=== PATIENT | female | born 1965 | race American Indian/Alaskan Native ===

== ENCOUNTER 2017-06-12 15:57 | Emergency (ER) | payer MEDICAID ==
[2017-06-12 16:06] VITALS: BMI 35.7
[2017-06-12 16:26] VITALS: RESP 18; TEMP 98.6; O2SAT 99
--- NOTE | 2017-06-12 16:29 | ED PDOC ---
Arrival/HPI - General Chief Complaint: Shortness Of Breath Time Seen by Provider: 06/12/17 15:58 Historian: Patient - History of Present Illness Narrative History of Present Illness (Text): 06/12/17 15:58 A 52 year old female, current smoker, whose medical history includes hypertension and sleep apnea, presents to the emergency department for shortness of breath associated with a pain in her left side. The patient states she began to feel cold-like symptoms, but especially a cough about 5 days ago. She reports that within the last 3 days she's become easily winded she feels a greater sensation of shortness of breath. Aside to her shortness of breath and cough, she notes having a "gas like pain" on her left side, which worsens when she lays down or takes a deep breath. Denies association with meals. No diarrhea. No urinary symptoms. Denies recent cardiac evaluation. Denies smoking. Denies prolonged travel or immobilization. PMD: Dr. Main Iraheta Time/Duration: < week (5 days) Symptom Onset: Gradual Symptom Course: Unchanged Activities at Onset: Light Context: Home Past Medical History - Provider Review Nursing Documentation Reviewed: Yes - Infectious Disease Hx of Infectious Diseases: None - Reproductive Menopause: Yes - Cardiac Hx Hypertension: Yes - Pulmonary Hx Sleep Apnea: Yes - Psychiatric Hx Substance Use: No - Anesthesia Hx Anesthesia: No Family/Social History - Physician Review Nursing Documentation Reviewed: Yes Family/Social History: Unknown Family HX Smoking Status: Current Some Days Smoker Hx Alcohol Use: No Hx Substance Use: No Allergies/Home Meds Allergies/Adverse Reactions: Allergies ragweed pollen Allergy (Verified 06/12/17 16:07) CONGESTION Home Medications: Home Meds Medication Instructions Recorded Confirmed Losartan [Cozaar] 100 mg PO DAILY 06/12/17 06/14/17 Triamterene/Hydrochlorothiazid 1 cap PO DAILY 06/12/17 06/14/17 [Triamterene-Hydrochlorothiazide 25 mg-37.5 mg] Review of Systems - Review of Systems Constitutional: absent: Fevers Eyes: absent: Vision Changes ENT: absent: Hearing Changes Respiratory: SOB, Cough, Sputum Cardiovascular: absent: Chest Pain Gastrointestinal: Abdominal Pain (Upper left side- "gas-like)). absent: Diarrhea, Nausea, Vomiting, Appetite Changes, Hematochezia Genitourinary Female: absent: Hematuria, Urine Output Changes Musculoskeletal: absent: Back Pain, Neck Pain Skin: Normal. absent: Rash Neurological: absent: Headache Endocrine: absent: Diaphoresis Hemo/Lymphatic: absent: Easy Bleeding Psychiatric: absent: Depression Physical Exam - Physical Exam Narrative Physical Exam (Text): 06/12/17 16:00 Head: Atraumatic. Normocephalic. Eyes: PERRL. EOMI. Conjunctivae are not pale. ENT: Mucous membranes are moist and intact. Oropharynx is clear and symmetric. Neck: Supple. Full ROM. No JVD. No lymphadenopathy. Cardiovascular: Regular rate. Regular rhythm. No murmurs, rubs, or gallops. Distal pulses are 2+ and symmetric. Pulmonary/Chest: No evidence of respiratory distress. Clear to auscultation bilaterally. No wheezing, rales or rhonchi. Palpable left sided back/rib discomfort, no edema. Abdominal: Soft and non-distended. There is no tenderness. No rebound, guarding, or rigidity. No organomegaly. Good bowel sounds. No luq pain. Back: Tender to palpation on the left side. Extremities: No edema. No cyanosis. No clubbing. Full range of motion in all extremities. No calf tenderness. Skin: No vesicular rash. Skin is warm and dry. No petechiae. No purpura. Neurological: Alert, awake, and oriented to person, place, time, and situation. Normal speech. Motor and sensory function intact. Psychiatric: Good eye contact. Normal interaction, affect, and behavior. Vital Signs Reviewed: Yes Vital Signs Temp Pulse Resp BP Pulse Ox 06/12/17 18:00 75 18 139/75 99 06/12/17 16:26 98.6 F 72 18 151/94 H 99 06/12/17 16:00 18 99 Temperature: Afebrile Blood Pressure: Hypertensive Pulse: Regular Respiratory Rate: Normal Appearance: Positive for: Non-Toxic, Uncomfortable Pain Distress: Mild Mental Status: Positive for: Alert and Oriented X 3 Medical Decision Making ED Course and Treatment: 06/12/17 16:05 Impression: A 52 year old female with shortness of breath, cough, and gas like pain. Differential Diagnosis included but are not limited to: Pneumonia vs. CAD vs. Muscle strain vs. Pulmonary Embolism Plan: -- EKG -- Chest X-Ray -- Labs -- Urinalysis -- Reassess and disposition Progress Notes: Patient has a palpable component to left sided pain, appears more left flank/ ribs but denies urinary symptoms or trauma. No rash noted. No abdominal pain noted. No calf pain. No hypoxia. Ddimer unremarkable. Chest X-Ray Concert Pianist : Tha Segal MD Report Date : 06/12/2017 17:37:27 HISTORY:chest pain COMPARISON:No prior. FINDINGS: LUNGS:No active pulmonary disease. PLEURA:No significant pleural effusion identified, no pneumothorax apparent. CARDIOVASCULAR:Normal. OSSEOUS STRUCTURES:No significant abnormalities. VISUALIZED UPPER ABDOMEN:Normal. OTHER FINDINGS:None. IMPRESSION:No active disease. Pain improved after Toradol. I discussed cxr and lab findings and reviewed limitations of studies, have advised admission to the hospital for further monitoring and cardiac evaluation on inpatient basis. Patient states she does not want to be admitted stating that she is very busy and feels better. I have discussed with her limitations of labs and current imaging studies in completely diagnosis cardiac or pulmonary disease. She is able to repeat back risks and repeat back recommended treatment plan. She will be discharged against advice. 06/12/17 19:12 Leaving Against Medical Advice (AMA): This patient is choosing to leave against medical advice. I have personally explained to the patient that choosing to do so may result in permanent bodily harm or . I have discussed at great length that without further evaluation and monitoring there may be unforeseen circumstances and/or deterioration causing permanent bodily harm or as a result of their choice. The patient is alert, oriented, and shows the mental capacity to make clear decisions regarding the patients health care at this time. The patient continues to wish to leave against medical advice. In light of the patients decision to leave AMA, follow-up has been arranged and the patient is aware of the importance of following up as instructed. The patient has been advised that they should return to the ED immediately if they change their mind at any time, or if their condition begins to change or worsen in any way. - Lab Interpretations Lab Results: 06/12/17 16:20 06/12/17 16:40 Lab Results 06/12/17 16:40: Sodium 141, Potassium 4.1, Chloride 101, Carbon Dioxide 30, Anion Gap 14, BUN 16, Creatinine 0.9, Est GFR ( Amer) > 60, Est GFR (Non- Af Amer) > 60, Random Glucose 84, Calcium 9.6, Total Bilirubin 0.5, AST 26, ALT 37, Alkaline Phosphatase 130, Lactate Dehydrogenase 502, Total Creatine Kinase 103, Troponin I < 0.01, Total Protein 8.1, Albumin 4.6, Globulin 3.5, Albumin/ Globulin Ratio 1.3 06/12/17 16:20: PT 10.3, INR 0.95, APTT 28.0, D-Dimer, Quantitative 0.33 06/12/17 16:20: WBC 9.9, RBC 4.83, Hgb 13.5, Hct 41.0, MCV 84.9, MCH 28.0, MCHC 32.9, RDW 13.3, Plt Count 272, MPV 11.1 H, Gran % 60.9, Lymph % (Auto) 26.8, [place] % (Auto) 7.9 H, Eos % (Auto) 3.9, Baso % (Auto) 0.5, Gran # 6.03, Lymph # 2.7, [place] # 0.8 H, Eos # 0.4, Baso # 0.05 06/12/17 16:10: Urine Color Yellow, Urine Appearance Clear, Urine pH 8.0, Ur Specific [place] 1.015, Urine Protein Negative, Urine Glucose (UA) Negative, Urine Ketones Negative, Urine Blood Negative, Urine Nitrate Negative, Urine Bilirubin Negative, Urine Urobilinogen 1.0 H, Ur Leukocyte Esterase Negative - RAD Interpretation Radiology Orders: 06/12/17 16:13 CHEST PORTABLE [RAD] Stat - EKG Interpretation EKG Interpretation (Text): 06/12/17 22:46 EKG at 16:14 normal sinus rhythm raet of 78 with possible left atrial enlargement Interpreted by ED Physician: Yes Type: 12 lead EKG - Medication Orders Current Medication Orders: Discontinued Medications Ketorolac Tromethamine (Toradol) 30 mg IVP ONCE ONE Stop: 06/12/17 16:41 Last Admin: 06/12/17 16:48 Dose: 30 mg - PA / NAVAL DESIGNER / Resident Statement MD/DO has reviewed & agrees with the documentation as recorded. - Scribe Statement The provider has reviewed the documentation as recorded by the [facility] Provider Scribe Attestation: All medical record entries made by the Scribe were at my direction and personally dictated by me. I have reviewed the chart and agree that the record accurately reflects my personal performance of the history, physical exam, medical decision making, and the department course for this patient. I have also personally directed, reviewed, and agree with the discharge instructions and disposition. Disposition/Present on Arrival - Present on Arrival Any Indicators Present on Arrival: No History of DVT/PE: No History of Uncontrolled Diabetes: No Urinary Catheter: No History of Decub. Ulcer: No History Surgical Site Infection Following: None - Disposition Have Diagnosis and Disposition been Completed?: Yes Diagnosis: Flank pain, Chest pain, Dyspnea Disposition: AGAINST MEDICAL ADVICE Disposition Time: 18:00 Patient Plan: Discharge Condition: GOOD Discharge Instructions (ExitCare): Chest Pain (ED), Flank Pain (ED) Additional Instructions: I have discussed with you your lab tests, xrays, and also discussed limitations of these studies and xrays. We have discussed and recommended admission to the hospital for further monitoring and evaluation of your heart, lungs and pain. Risks of sudden , heart attack, disability, pain, persistent symptoms, have been reviewed. Follow-up immediately for any worsening or persistence of symptoms. Referrals: Tony Iraheta MD [Primary Care Provider] - Follow up with primary Forms: [employer] (Faroese)
[2017-06-12 16:35] LABS: BASO # 0.05 K/mm3 (0.0-2.0); BASO % 0.5 % (0.0-3.0); EOS # 0.4 (0.0-0.7); EOS % 3.9 % (1.5-5.0); GRAN # 6.03 (1.4-6.5); GRAN % 60.9 % (50.0-68.0); LYMPH # 2.7 (1.2-3.4); LYMPH % 26.8 % (22.0-35.0); MEAN CELL VOLUME 84.9 fl (80.0-105.0); MEAN CORPUSCULAR HGB CONC 32.9 g/dl (31.0-37.0); MEAN PLATELET VOLUME 11.1 fl (7.0-11.0); MONO # 0.8 (0.1-0.6); MONO % 7.9 % (1.0-6.0); RED CELL DISTRIBUTION WIDTH 13.3 % (11.5-14.5); WHITE BLOOD COUNT 9.9 10^3/ul (4.5-11.0)
[2017-06-12 16:41] LABS: URINE BILIRUBIN NEGATIVE (NEGATIVE); URINE BLOOD NEGATIVE (NEGATIVE); URINE GLUCOSE (UA) NEGATIVE (NEGATIVE); URINE KETONE NEGATIVE (NEGATIVE); URINE LEUKOCYTE ESTERASE NEGATIVE Leu/uL (NEGATIVE); URINE PROTEIN NEGATIVE mg/dL (<30 mg/dL)
[2017-06-12 16:43] LABS: URINE APPEARANCE CLEAR (CLEAR); URINE COLOR YELLOW (YELLOW)
[2017-06-12 16:51] LABS: INR 0.95 (0.93-1.08)
[2017-06-12 16:52] LABS: D DIMER 0.33 mg/L FEU (0-0.50)
[2017-06-12 17:06] LABS: ALB/GLOB RATIO 1.3 (1.1-1.8); ALKALINE PHOSPHATASE 130 U/L (38-133); ALT/SGPT 37 U/L (7-56); AST/SGOT 26 U/L (15-39); BILIRUBIN,TOTAL 0.5 mg/dL (0.2-1.3); BLOOD UREA NITROGEN 16 mg/dL (7-21); CALCIUM 9.6 mg/dL (8.4-10.5); CARBON DIOXIDE 30 mmol/L (21-33); CHLORIDE 101 mmol/L (98-107); GFR AFRICAN-AMERICAN > 60; GLUCOSE,RANDOM 84 mg/dL (70-110); POTASSIUM 4.1 mmol/L (3.6-5.0); SODIUM 141 mmol/L (132-148); TOTAL PROTEIN 8.1 g/dL (5.8-8.3)
[2017-06-12 17:20] LABS: TROPONIN I < 0.01 ng/mL
--- NOTE | 2017-06-12 17:39 | RAD ---
HISTORY: chest pain COMPARISON: No prior. FINDINGS: LUNGS: No active pulmonary disease. PLEURA: No significant pleural effusion identified, no pneumothorax apparent. CARDIOVASCULAR: Normal. OSSEOUS STRUCTURES: No significant abnormalities. VISUALIZED UPPER ABDOMEN: Normal. OTHER FINDINGS: None. IMPRESSION: No active disease.
[2017-06-12 18:35] VITALS: BP 139/75; PULSE 75
--- NOTE | 2017-06-13 10:58 | CARD ---
APPROVED REPORT EKG Measurement Heart [id number] MD [id number] <Conclusion> Normal sinus rhythm Possible Left atrial enlargement Borderline ECG
== END 2017-06-12 19:35 | disposition left against medical advice (07) ==
LOC: ED 15:57
DX: R07.9 Chest pain, unspecified (principal); R10.9 Unspecified abdominal pain; I10 Essential (primary) hypertension; F17.210 Nicotine dependence, cigarettes, uncomplicated
CPT/HCPCS: 71010; 80053; 81003; 82550; 83615; 84484; 85025; 85378; 85610; 85730; 93005; 96374; 99284; J1885

== ENCOUNTER 2017-06-14 16:09 | Emergency (ER) | payer MEDICAID ==
[2017-06-14 16:15] VITALS: BMI 34.9
[2017-06-14 16:20] VITALS: TEMP 98.8
--- NOTE | 2017-06-14 16:39 | ED PDOC ---
Arrival/HPI - General Chief Complaint: Back Pain Time Seen by Provider: 06/14/17 16:22 Historian: Patient - History of Present Illness Narrative History of Present Illness (Text): 06/14/17 16:36 A 52 year old female, whose past medical history includes hypertension, presents to the emergency department complaining of left flank pain for 1 week. Patient was recently evaluated in the emergency room 2 days ago for same complaint and signed out against medical advise. pt reports mild cough, she attributes to "mold exposure". Patient denies any trauma, injury, fever, chills , nausea, vomiting, abdominal pain, urinary symptoms, chest pain, shortness of breath or any other complaints. Time/Duration: 1 week Symptom Course: Unchanged Quality: Other Context: Home Past Medical History - Provider Review Nursing Documentation Reviewed: Yes - Infectious Disease Hx of Infectious Diseases: None - Cardiac Hx Hypertension: Yes - Pulmonary Hx Sleep Apnea: Yes - Psychiatric Hx Substance Use: No - Surgical History Hx Tubal Ligation: Yes Other/Comment: Liver scar tissue removal - Anesthesia Hx Anesthesia: Yes Hx Anesthesia Reactions: No Hx Malignant Hyperthermia: No Family/Social History - Physician Review Nursing Documentation Reviewed: Yes Family/Social History: No Known Family HX Smoking Status: Light Smoker < 10 Cigarettes Daily Hx Alcohol Use: No Hx Substance Use: No Allergies/Home Meds Allergies/Adverse Reactions: Allergies ragweed pollen Allergy (Verified 06/12/17 16:07) CONGESTION Home Medications: Home Meds Medication Instructions Recorded Confirmed Losartan [Cozaar] 100 mg PO DAILY 06/12/17 06/14/17 Triamterene/Hydrochlorothiazid 1 cap PO DAILY 06/12/17 06/14/17 [Triamterene-Hydrochlorothiazide 25 mg-37.5 mg] Review of Systems - Physician Review All systems were reviewed & negative as marked: Yes - Review of Systems Constitutional: absent: Fevers, Night Sweats Respiratory: absent: SOB Cardiovascular: absent: Chest Pain Gastrointestinal: absent: Abdominal Pain, Nausea, Vomiting Genitourinary Female: absent: Dysuria, Frequency, Hematuria, Urine Output Changes Musculoskeletal: Back Pain (Left flank pain) Physical Exam Vital Signs Reviewed: Yes Vital Signs Temp Pulse Resp BP Pulse Ox 06/14/17 18:25 85 17 121/70 99 06/14/17 16:20 98.8 F 89 18 120/69 96 Temperature: Afebrile Blood Pressure: Normal Pulse: Regular Respiratory Rate: Normal Appearance: Positive for: Well-Appearing, Non-Toxic, Comfortable Pain Distress: None Mental Status: Positive for: Alert and Oriented X 3 - Systems Exam Head: Present: Atraumatic, Normocephalic Pupils: Present: PERRL Extroacular Muscles: Present: EOMI Conjunctiva: Present: Normal Mouth: Present: Moist Mucous Membranes Neck: Present: Normal Range of Motion Respiratory/Chest: Present: Clear to Auscultation, Good Air Exchange. No: Respiratory Distress, Accessory Muscle Use Cardiovascular: Present: Regular Rate and Rhythm, Normal S1, S2. No: Murmurs Abdomen: Present: Normal Bowel Sounds. No: Tenderness, Distention, Peritoneal Signs Back: Present: CVA Tenderness (Left flank tenderness to palpation) Upper Extremity: Present: Normal Inspection. No: Cyanosis, Edema Lower Extremity: Present: Normal Inspection. No: Edema Neurological: Present: GCS=15, CN II-XII Intact, Speech Normal Skin: Present: Warm, Dry, Normal Color. No: Rashes Psychiatric: Present: Alert, Oriented x 3, Normal Insight, Normal Concentration Medical Decision Making ED Course and Treatment: 06/14/17 16:36 Impression: A 52 year old female with left flank pain. r/o renal colic, uti, pyelo, msk pain. Plan: -- Abdomen and pelvis CT -- Chest xray -- EKG -- Labs -- Urinalysis -- Toradol -- Reassess and disposition Progress Notes: EKG shows NSR at [address]/T wave changes. Interpreted by me. Report Date : 06/14/2017 17:28:58 PROCEDURE: CT Abdomen and Pelvis without Oral or IV contrast. Dictator : Dee Rosario MD IMPRESSION: Bibasilar atelectasis. Patchy left lower lobe opacities may reflect pneumonia or atelectasis. Diverticulosis without CT evidence of acute diverticulitis. Moderate constipation. Small hiatal hernia. 06/14/17 18:15 pt reassesed: symptoms improved.abd pelvis ct shows ?opacity. pt reports increased cough. curb 65 neg. sat 99% advise outpt f/u and return precauitons. - Lab Interpretations Lab Results: 06/14/17 17:00 06/14/17 17:00 Lab Results 06/14/17 17:00: Sodium 140, Potassium 4.0, Chloride 104, Carbon Dioxide 27, Anion Gap 13, BUN 15, Creatinine 1.0, Est GFR ( Amer) > 60, Est GFR (Non- Af Amer) 58, Random Glucose 92, Calcium 9.7, Magnesium 2.0, Total Bilirubin 0.5 , AST 32, ALT 35, Alkaline Phosphatase 112, Lactate Dehydrogenase 462, Total Creatine Kinase 82, Troponin I 0.02 D, Total Protein 7.7, Albumin 4.3, Globulin 3.4, Albumin/Globulin Ratio 1.3, Lipase 80 06/14/17 17:00: PT 10.5, INR 0.97, APTT 27.4 06/14/17 17:00: WBC 10.0, RBC 4.71, Hgb 13.0, Hct 40.1, MCV 85.1, MCH 27.6, MCHC 32.4, RDW 13.3, Plt Count 283, MPV 10.6, Gran % 61.1, Lymph % (Auto) 25.5, [place] % (Auto) 8.4 H, Eos % (Auto) 4.7, Baso % (Auto) 0.3, Gran # 6.08, Lymph # 2.5, [place] # 0.8 H, Eos # 0.5, Baso # 0.03 06/14/17 16:45: Urine Color Light yellow, Urine Appearance Clear, Urine pH 6.5, Ur Specific [place] 1.010, Urine Protein Negative, Urine Glucose (UA) Negative, Urine Ketones Negative, Urine Blood Negative, Urine Nitrate Negative, Urine Bilirubin Negative, Urine Urobilinogen 1.0 H, Ur Leukocyte Esterase Negative, Urine HCG, Qual Negative I have reviewed the lab results: Yes - RAD Interpretation Radiology Orders: 06/14/17 16:33 CHEST PORTABLE [RAD] Stat 06/14/17 16:34 ABD & PELVIS W/O PO OR IV CONT [CT] Stat - Medication Orders Current Medication Orders: Discontinued Medications Ketorolac Tromethamine (Toradol) 30 mg IVP STAT STA Stop: 06/14/17 16:35 Last Admin: 06/14/17 17:03 Dose: 30 mg Levofloxacin (Levaquin) 750 mg PO STAT STA Stop: 06/14/17 18:23 Last Admin: 06/14/17 18:34 Dose: 750 mg - Scribe Statement The provider has reviewed the documentation as recorded by the [facility] [place] Provider Grey Attestation: All medical record entries made by the Grey were at my direction and personally dictated by me. I have reviewed the chart and agree that the record accurately reflects my personal performance of the history, physical exam, medical decision making, and the department course for this patient. I have also personally directed, reviewed, and agree with the discharge instructions and disposition. Disposition/Present on Arrival - Present on Arrival Any Indicators Present on Arrival: No History of DVT/PE: No History of Uncontrolled Diabetes: No Urinary Catheter: No History of Decub. Ulcer: No History Surgical Site Infection Following: None - Disposition Have Diagnosis and Disposition been Completed?: Yes Diagnosis: Flank pain Disposition: HOME/ ROUTINE Disposition Time: 18:16 Condition: STABLE Discharge Instructions (ExitCare): Bacterial Pneumonia (ED), Flank Pain (ED) Additional Instructions: please follow up with your doctor. return to er with worsening symptoms or concerns. Prescriptions: Levofloxacin [Levaquin] 750 mg PO DAILY #7 tablet Naproxen 500 mg PO BID PRN #14 tab PRN Reason: Pain, Mild (1-3) Referrals: Tony Iraheta MD [Primary Care Provider] - Follow up with [facility] [Outside] - Follow up with primary [facility] [Outside] - Follow up with primary Forms: [employer] (Portuguese)
[2017-06-14 17:18] LABS: PH,URINE 6.5 (4.7-8.0); URINE BILIRUBIN NEGATIVE (NEGATIVE); URINE BLOOD NEGATIVE (NEGATIVE); URINE GLUCOSE (UA) NEGATIVE (NEGATIVE); URINE KETONE NEGATIVE (NEGATIVE); URINE LEUKOCYTE ESTERASE NEGATIVE Leu/uL (NEGATIVE); URINE PROTEIN NEGATIVE mg/dL (<30 mg/dL)
[2017-06-14 17:21] LABS: ALB/GLOB RATIO 1.3 (1.1-1.8); ALKALINE PHOSPHATASE 112 U/L (38-133); ALT/SGPT 35 U/L (7-56); AST/SGOT 32 U/L (15-39); BILIRUBIN,TOTAL 0.5 mg/dL (0.2-1.3); BLOOD UREA NITROGEN 15 mg/dL (7-21); CALCIUM 9.7 mg/dL (8.4-10.5); CARBON DIOXIDE 27 mmol/L (21-33); GFR AFRICAN-AMERICAN > 60; GLUCOSE,RANDOM 92 mg/dL (70-110); LIPASE 80 U/L (23-300); SODIUM 140 mmol/L (132-148); TOTAL PROTEIN 7.7 g/dL (5.8-8.3)
[2017-06-14 17:22] LABS: BASO # 0.03 K/mm3 (0.0-2.0); BASO % 0.3 % (0.0-3.0); CHLORIDE 104 mmol/L (98-107); EOS # 0.5 (0.0-0.7); EOS % 4.7 % (1.5-5.0); GRAN # 6.08 (1.4-6.5); GRAN % 61.1 % (50.0-68.0); HEMATOCRIT 40.1 % (36.0-48.0); LYMPH # 2.5 (1.2-3.4); LYMPH % 25.5 % (22.0-35.0); MEAN CELL VOLUME 85.1 fl (80.0-105.0); MEAN CORPUSCULAR HEMOGLOBIN 27.6 pg (25.0-35.0); MEAN CORPUSCULAR HGB CONC 32.4 g/dl (31.0-37.0); MEAN PLATELET VOLUME 10.6 fl (7.0-11.0); MONO # 0.8 (0.1-0.6); MONO % 8.4 % (1.0-6.0); RED CELL DISTRIBUTION WIDTH 13.3 % (11.5-14.5)
[2017-06-14 17:25] LABS: URINE APPEARANCE CLEAR (CLEAR); URINE COLOR LIGHT YELLOW (YELLOW)
[2017-06-14 17:29] LABS: INR 0.97 (0.93-1.08); PARTIAL THROMBOPLASTIN TIME 27.4 Seconds (23.7-30.8)
[2017-06-14 17:31] LABS: TROPONIN I 0.02 ng/mL
--- NOTE | 2017-06-14 18:08 | CT ---
PROCEDURE: CT Abdomen and Pelvis without Oral or IV contrast. HISTORY: left flank pain COMPARISON: None available. TECHNIQUE: Contiguous axial images of the abdomen and pelvis. No oral or IV contrast administered. Coronal and Sagittal reformats generated and reviewed. Radiation dose: Total exam DLP = 816.52 mGy-cm. This CT exam was performed using one or more of the following dose reduction techniques: Automated exposure control, adjustment of the mA and/or kV according to patient size, and/or use of iterative reconstruction technique. FINDINGS: There is limited evaluation of the solid organs without the administration of IV contrast. LOWER THORAX: Bibasilar atelectasis. Patchy left lower lobe opacities may reflect pneumonia or atelectasis. No visible pleural effusion or pneumothorax. Small hiatal hernia. LIVER: Unremarkable unenhanced appearance. GALLBLADDER AND BILE DUCTS: Unremarkable unenhanced appearance. PANCREAS: Unremarkable unenhanced appearance. SPLEEN: Unremarkable unenhanced appearance. ADRENALS: Unremarkable unenhanced appearance. KIDNEYS AND URETERS: No hydronephrosis or obstructing renal calculus. BLADDER: The urinary bladder appears unremarkable. REPRODUCTIVE: Uterus is present. APPENDIX: The appendix appears within normal limits of caliber. No secondary signs of acute appendicitis. BOWEL: The stomach is nondistended. Lack of oral contrast limits evaluation for bowel pathology. The bowel loops appear within normal limits of caliber without evidence of intestinal obstruction. Diverticulosis without CT evidence of acute diverticulitis. Moderate constipation. PERITONEUM: No significant free fluid. No definite free air. LYMPH NODES: No bulky lymphadenopathy identified. VASCULATURE: No aortic aneurysm. BONES: No acute osseous abnormality is detected. OTHER FINDINGS: None. IMPRESSION: Bibasilar atelectasis. Patchy left lower lobe opacities may reflect pneumonia or atelectasis. Diverticulosis without CT evidence of acute diverticulitis. Moderate constipation. Small hiatal hernia.
[2017-06-14] MEDS ORDERED: levoFLOXacin 750 MG TAB PO STA (18:22)
[2017-06-14 18:27] VITALS: BP 121/70; PULSE 85; RESP 17; O2SAT 99
--- NOTE | 2017-06-15 14:28 | RAD ---
HISTORY: abd pain COMPARISON: 06/12/2017 FINDINGS: LUNGS: No interval infiltrate PLEURA: No significant pleural effusion identified, no pneumothorax apparent. CARDIOVASCULAR: Minimal left ventricular enlargement probable. The overall central pulmonary vasculature including and a right infrahilar location appear borderline prominent yet similar OSSEOUS STRUCTURES: Thoracic spondylosis VISUALIZED UPPER ABDOMEN: Normal. OTHER FINDINGS: None. IMPRESSION: No interval infiltrate. No interval pathology
--- NOTE | 2017-06-15 19:33 | CARD ---
APPROVED REPORT EKG Measurement Heart [id number] [place] [id number] <Conclusion> Normal sinus rhythm Possible Left atrial enlargement Borderline ECG
== END 2017-06-14 18:37 | disposition home or self-care (01) ==
LOC: ED 16:09
DX: R10.9 Unspecified abdominal pain (principal); I10 Essential (primary) hypertension
CPT/HCPCS: 71010; 74176; 80053; 81003; 82550; 83615; 83690; 83735; 84484; 84703; 85025; 85610; 85730; 93005; 96374; 99284; J1885

== ENCOUNTER 2017-07-05 20:42 | Observation (INO) | payer MEDICAID ==
[2017-07-05 21:14] VITALS: O2SAT 100
[2017-07-05] MEDS ORDERED: Morphine 2 mg/ml ISec IVP STA (21:21)
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
[2017-07-05 21:55] LABS: HEMATOCRIT 38.2 % (36.0-48.0); MEAN CELL VOLUME 85.7 fl (80.0-105.0); MEAN CORPUSCULAR HGB CONC 32.7 g/dl (31.0-37.0); MEAN PLATELET VOLUME 10.9 fl (7.0-11.0); RED CELL DISTRIBUTION WIDTH 13.1 % (11.5-14.5); WHITE BLOOD COUNT 8.2 10^3/ul (4.5-11.0)
[2017-07-05 21:56] LABS: ALB/GLOB RATIO 1.2 (1.1-1.8); ALKALINE PHOSPHATASE 106 U/L (38-126); ALT/SGPT 34 U/L (7-56); AST/SGOT 37 U/L (14-36); BILIRUBIN,TOTAL 0.5 mg/dL (0.2-1.3); BLOOD UREA NITROGEN 15 mg/dL (7-21); CALCIUM 9.4 mg/dL (8.4-10.5); CARBON DIOXIDE 30 mmol/L (21-33); CHLORIDE 103 mmol/L (98-107); GFR AFRICAN-AMERICAN > 60; GLUCOSE,RANDOM 78 mg/dL (70-110); LIPASE 225 U/L (23-300); SODIUM 140 mmol/L (132-148); TOTAL PROTEIN 7.5 g/dL (5.8-8.3)
[2017-07-05 21:58] LABS: POTASSIUM 4.1 mmol/L (3.6-5.0)
[2017-07-05 22:27] LABS: TROPONIN I < 0.01 ng/mL
[2017-07-06 00:28] VITALS: RESP 20
[2017-07-06 00:40] VITALS: BMI 33.6
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
[2017-07-06 05:47] VITALS: BP 132/80; PULSE 69; TEMP 97.8
[2017-07-06 07:39] LABS: BASO # 0.04 K/mm3 (0.0-2.0); BASO % 0.7 % (0.0-3.0); EOS # 0.5 (0.0-0.7); EOS % 8.7 % (1.5-5.0); GRAN # 2.32 (1.4-6.5); HEMATOCRIT 38.4 % (36.0-48.0); LYMPH # 2.7 (1.2-3.4); LYMPH % 45.4 % (22.0-35.0); MEAN CELL VOLUME 85.5 fl (80.0-105.0); MEAN CORPUSCULAR HEMOGLOBIN 26.7 pg (25.0-35.0); MEAN CORPUSCULAR HGB CONC 31.3 g/dl (31.0-37.0); MEAN PLATELET VOLUME 10.2 fl (7.0-11.0); MONO # 0.4 (0.1-0.6); MONO % 6.2 % (1.0-6.0); RED CELL DISTRIBUTION WIDTH 13.1 % (11.5-14.5)
[2017-07-06 07:48] LABS: BLOOD UREA NITROGEN 12 mg/dL (7-21); CALCIUM 9.3 mg/dL (8.4-10.5); CARBON DIOXIDE 31 mmol/L (21-33); CHLORIDE 103 mmol/L (98-107); CHOLESTEROL 143 mg/dL (130-200); GFR AFRICAN-AMERICAN > 60; GLUCOSE,RANDOM 94 mg/dL (70-110); POTASSIUM 3.7 mmol/L (3.6-5.0); SODIUM 142 mmol/L (132-148)
[2017-07-06 08:01] LABS: TROPONIN I < 0.01 ng/mL
--- NOTE | 2017-07-06 08:51 | RAD ---
HISTORY: chest pain COMPARISON: 06/14/2017 FINDINGS: LUNGS: No active pulmonary disease. PLEURA: No significant pleural effusion identified, no pneumothorax apparent. CARDIOVASCULAR: Normal. OSSEOUS STRUCTURES: No significant abnormalities. VISUALIZED UPPER ABDOMEN: Normal. OTHER FINDINGS: None. IMPRESSION: No active disease.
[2017-07-06] MEDS ORDERED: Pantoprazole 40 mg EC Tab PO SCH (10:11)
[2017-07-06] MEDS ORDERED: Alum-Mag Hydrox-Simethicone Susp (30 mL) PO SCH (12:00)
--- NOTE | 2017-07-06 12:58 | CARD ---
APPROVED REPORT EKG Measurement Heart [id number] <Conclusion> Normal sinus rhythm Normal ECG
--- NOTE | 2017-07-06 12:59 | CARD ---
APPROVED REPORT EKG Measurement Heart [id number] [place] [id number] <Conclusion> Normal sinus rhythm Normal ECG
--- NOTE | 2017-07-06 13:48 | CP.PCM.DIS ---
Provider - Provider Date of Admission: 07/05/17 22:44 Attending physician: Gege Gonsales MD Primary care physician: Tony Iraheta MD Consults: Cardiology- Dr Newman Time Spent in preparation of Discharge (in minutes): 45 Diagnosis - Discharge Diagnosis (1) Atypical chest pain Status: Resolved (2) HTN (hypertension) Status: Chronic (3) Tobacco abuse Status: Chronic (4) GERD (gastroesophageal reflux disease) Status: Chronic (5) Hiatal hernia Status: Acute Hospital Course - Lab Results Lab Results: Most Recent Lab Values WBC 6.0 10^3/ul (4.5-11.0) D 07/06/17 07:32 RBC 4.49 10^6/uL (3.5-6.1) 07/06/17 07:32 Hgb 12.0 g/dL (12.0-16.0) 07/06/17 07:32 Hct 38.4 % (36.0-48.0) 07/06/17 07:32 MCV 85.5 fl (80.0-105.0) 07/06/17 07:32 MCH 26.7 pg (25.0-35.0) 07/06/17 07:32 MCHC 31.3 g/dl (31.0-37.0) 07/06/17 07:32 RDW 13.1 % (11.5-14.5) 07/06/17 07:32 Plt Count 275 10^3/uL (120.0-450.0) 07/06/17 07:32 MPV 10.2 fl (7.0-11.0) 07/06/17 07:32 Gran % 39.0 % (50.0-68.0) L 07/06/17 07:32 Lymph % (Auto) 45.4 % (22.0-35.0) H 07/06/17 07:32 [place] % (Auto) 6.2 % (1.0-6.0) H 07/06/17 07:32 Eos % (Auto) 8.7 % (1.5-5.0) H 07/06/17 07:32 Baso % (Auto) 0.7 % (0.0-3.0) 07/06/17 07:32 Gran # 2.32 (1.4-6.5) 07/06/17 07:32 Lymph # 2.7 (1.2-3.4) 07/06/17 07:32 [place] # 0.4 (0.1-0.6) 07/06/17 07:32 Eos # 0.5 (0.0-0.7) 07/06/17 07:32 Baso # 0.04 K/mm3 (0.0-2.0) 07/06/17 07:32 Sodium 142 mmol/L (132-148) 07/06/17 07:32 Potassium 3.7 mmol/L (3.6-5.0) 07/06/17 07:32 Chloride 103 mmol/L (98-107) 07/06/17 07:32 Carbon Dioxide 31 mmol/L (21-33) 07/06/17 07:32 Anion Gap 12 (10-20) 07/06/17 07:32 BUN 12 mg/dL (7-21) 07/06/17 07:32 Creatinine 0.8 mg/dL (0.5-1.4) 07/06/17 07:32 Est GFR ( Amer) > 60 07/06/17 07:32 Est GFR (Non-Af Amer) > 60 07/06/17 07:32 Random Glucose 94 mg/dL (70-110) 07/06/17 07:32 Calcium 9.3 mg/dL (8.4-10.5) 07/06/17 07:32 Total Bilirubin 0.5 mg/dL (0.2-1.3) 07/05/17 21:35 AST 37 U/L (14-36) H 07/05/17 21:35 ALT 34 U/L (7-56) 07/05/17 21:35 Alkaline Phosphatase 106 U/L (38-126) 07/05/17 21:35 Lactate Dehydrogenase 714 U/L (333-699) H 07/05/17 22:04 Total Creatine Kinase 149 U/L (35-230) 07/05/17 22:04 Troponin I < 0.01 ng/mL 07/06/17 07:32 Total Protein 7.5 g/dL (5.8-8.3) 07/05/17 21:35 Albumin 4.1 g/dL (3.0-4.8) 07/05/17 21:35 Globulin 3.4 gm/dL 07/05/17 21:35 Albumin/Globulin Ratio 1.2 (1.1-1.8) 07/05/17 21:35 Triglycerides 48 mg/dL (35-160) 07/06/17 07:32 Cholesterol 143 mg/dL (130-200) 07/06/17 07:32 LDL Cholesterol Direct 94 mg/dL (0-129) 07/06/17 07:32 HDL Cholesterol 39 mg/dL (29-60) 07/06/17 07:32 Lipase 225 U/L (23-300) 07/05/17 21:35 Urine Opiates Screen Positive (NEGATIVE) H 07/06/17 08:25 Urine Methadone Screen Negative (NEGATIVE) 07/06/17 08:25 Ur Barbiturates Screen Negative (NEGATIVE) 07/06/17 08:25 Ur Phencyclidine Scrn Negative (NEGATIVE) 07/06/17 08:25 Ur Amphetamines Screen Negative (NEGATIVE) 07/06/17 08:25 U Benzodiazepines Scrn Negative (NEGATIVE) 07/06/17 08:25 U Oth Cocaine Metabols Negative (NEGATIVE) 07/06/17 08:25 U Cannabinoids Screen Negative (NEGATIVE) 07/06/17 08:25 - Hospital Course Hospital Course: Patient is a 52 y/o with pmh of hrn, active tobacco use, morbidly obese, gerd and hiatal hernia whom presented with mid sternal chest pain radiating to the back, worst with movement. Patient described the pain as burning like her usual acid reflex pain. Troponin negatived x3, ekg was normal, no events on tele. Patient added that she was recently diagnosed with sleep apnea, and was scheduled for stress test this 07/08/[address] Yennifer Ortiz. Patient was seen by sequencing machine operator Dr Newman and was cleared for discharge and follow up with her private sequencing machine operator outpatient. Weight loss and tobacco cessation advised. - Date & Time of H&P Date of H&P: 07/06/17 Time of H&P: 01:25 Discharge Exam - Head Exam Head Exam: ATRAUMATIC, NORMAL INSPECTION, NORMOCEPHALIC - Eye Exam Eye Exam: EOMI, Normal appearance - ENT Exam ENT Exam: Mucous Membranes Moist - Neck Exam Neck exam: Normal Inspection - Respiratory Exam Respiratory Exam: Clear to PA & Lateral, NORMAL BREATHING PATTERN, UNREMARKABLE. absent: Rales, Rhonchi, Wheezes, Stridor - Cardiovascular Exam Cardiovascular Exam: REGULAR RHYTHM, +S1, +S2 - GI/Abdominal Exam GI & Abdominal Exam: Normal Bowel Sounds, Unremarkable. absent: Rigid, Soft, Tenderness - Back Exam Back exam: NORMAL INSPECTION - Neurological Exam Neurological exam: Alert, CN II-XII Intact, Oriented x3 - Psychiatric Exam Psychiatric exam: Normal Affect, Normal Mood - Skin Skin Exam: Dry, Intact, Normal Color, Warm Discharge Plan - Discharge Medications Prescriptions: Aluminum Hydroxide/Magnesium [Maalox Plus 30 ml] 30 ml PO DAILY #30 Pantoprazole [Protonix EC Tab] 40 mg PO 0600 #30 ect - Follow Up Plan Condition: STABLE Disposition: HOME/ ROUTINE Patient education suggested?: Yes Instructions: Chest Pain (DC) Additional Instructions: Please follow up with your sequencing machine operator, Dr. Yennifer Ortiz for stress test as scheduled. Please follow up with your primary care doctor. Take the Pantoprazole as prescribed for gastrointestinal reflux disease and you might need to see a stomach doctor if the acid reflex doesn't get better. Please go to the nearest emergency room if you experience chest pain, shortness of breath, fever or chills. Referrals: Tony Iraheta MD [Primary Care Provider] - Fernando Ortiz MD [Staff Provider] -
--- NOTE | 2017-07-06 21:37 | CON ---
DATE: 07/06/2017 HISTORY OF PRESENT ILLNESS: The patient is a 52-year-old woman who presents with atypical chest discomfort. Her symptoms are described as gas like, increased with different positions in the supine as well as in the upright, has been completely relieved with burping since last night. The patient's past medical history is free of cardiac disease. A stress test performed within 12 months by her personal physician at [facility] was reported to be unremarkable. Her cardiac risk factors include hypertension as well as smoking. No diabetes mellitus noted. No previous cardiac history noted. SOCIAL HISTORY: The patient is an active smoker. REVIEW OF SYSTEMS: 14-point review of systems was reviewed. No cardiac symptomatology is noted. PHYSICAL EXAMINATION: VITAL SIGNS: Blood pressure is 132/80, heart rate is in the 60s. NECK: Negative JVD. LUNGS: Without rales. HEART: S1, S2. EXTREMITIES: Without edema. LABORATORY DATA: Troponins are negative x2. The EKG is within normal limits. Hemoglobin is 12. IMPRESSION: 1. Atypical chest pain. 2. No evidence for acute coronary syndrome. 3. Hypertension. 4. Possible COPD. PLAN: Given these findings, I have discussed with the patient about the need to stop smoking. The patient states she has a stress test that is scheduled by Dr. Ortiz, her personal physician, coming up this month. In addition, she has a followup and appointment to see him this week and would like to see him as a followup. Given these findings, we will discontinue telemetry. I have encouraged her to stop smoking and discussed with Dr. Ortiz about a smoking cessation program. She will follow up for a stress test through Dr. Ortiz. Tha Newman MD
== END 2017-07-06 14:54 | disposition home or self-care (01) ==
LOC: ED 20:42 → ERH 22:44 → 2RNO 23:43
PROVIDERS: ADMIT Internal Medicine; ATTEND Internal Medicine
DX: R07.89 Other chest pain (principal); I10 Essential (primary) hypertension; K21.9 Gastro-esophageal reflux disease without esophagitis; K44.9 Diaphragmatic hernia without obstruction or gangrene; F17.210 Nicotine dependence, cigarettes, uncomplicated; G47.30 Sleep apnea, unspecified; Z98.51 Tubal ligation status; Z79.82 Long term (current) use of aspirin
CPT/HCPCS: 36415; 71010; 80048; 80053; 80061; 80324; 80345; 80346; 80349; 80353; 80358; 80361; 82550; 83615; 83690; 83992; 84484; 85025; 85027; 93005; 96374; 99285; G0378; J2270

== ENCOUNTER 2018-01-14 15:11 | Emergency (ER) | payer MEDICAID ==
[2018-01-14 15:11] VITALS: BMI 33.6
--- NOTE | 2018-01-14 15:14 | ED PDOC ---
Arrival/HPI - General Time Seen by Provider: 01/14/18 15:12 Historian: Patient - History of Present Illness Narrative History of Present Illness (Text): 01/14/18 15:14 52 year old female, pmh including htn, nkda, complaining of throat pain x 1 week. Aching pain, aggravated by swallowing, no coughing, no night sweat, taking keflex for tonsillitis, no change in vision, no rash, no numbness or tingling, no difficulty turning the neck, no other medical or psychological complaints. Past Medical History - Provider Review Nursing Documentation Reviewed: Yes - Infectious Disease Hx of Infectious Diseases: None - Cardiac Hx Cardiac Disorders: Yes Hx Hypertension: Yes - Pulmonary Hx Respiratory Disorders: No - Neurological Hx Neurological Disorder: No - HEENT Hx HEENT Disorder: No - Renal Hx Renal Disorder: No - Endocrine/Metabolic Hx Endocrine Disorders: No - Hematological/Oncological Hx Blood Disorders: No - Integumentary Hx Dermatological Disorder: No - Musculoskeletal/Rheumatological Hx Musculoskeletal Disorders: No Hx Falls: No - Gastrointestinal Hx Gastrointestinal Disorders: No - Genitourinary/Gynecological Hx Genitourinary Disorders: No - Psychiatric Hx Psychophysiologic Disorder: No Hx Substance Use: No - Surgical History Other/Comment: tubal ligation, liver scar tissue removal - Anesthesia Hx Anesthesia: Yes Hx Anesthesia Reactions: No Hx Malignant Hyperthermia: No Family/Social History - Physician Review Nursing Documentation Reviewed: Yes Family/Social History: Unknown Family HX Smoking Status: Light Smoker < 10 Cigarettes Daily Hx Alcohol Use: No Hx Substance Use: No Allergies/Home Meds Allergies/Adverse Reactions: Allergies ragweed pollen Allergy (Verified 01/14/18 15:23) CONGESTION Home Medications: Home Meds Medication Instructions Recorded Confirmed Aspirin [Adult Low Dose Aspirin EC] 81 mg PO DAILY 07/05/17 01/14/18 Bp Med 01/14/18 Review of Systems - Review of Systems Constitutional: absent: Fatigue, Fevers Eyes: absent: Vision Changes ENT: Sore Throat. absent: Hearing Changes Respiratory: absent: SOB, Cough Cardiovascular: absent: Chest Pain Gastrointestinal: absent: Abdominal Pain, Diarrhea, Nausea, Vomiting Skin: absent: Rash, Pruritis Neurological: absent: Headache Psychiatric: absent: Anxiety, Depression, Suicidal Ideation Physical Exam Vital Signs Reviewed: Yes Vital Signs Temp Pulse Resp BP Pulse Ox 01/14/18 15:50 98.5 F 83 18 124/78 98 01/14/18 15:17 98.5 F 83 18 124/78 97 Temperature: Afebrile Blood Pressure: Normal Pulse: Regular Respiratory Rate: Normal Appearance: Positive for: Well-Appearing, Non-Toxic, Comfortable Pain Distress: Severe Mental Status: Positive for: Alert and Oriented X 3 - Systems Exam Head: Present: Atraumatic, Normocephalic Pupils: Present: PERRL Extroacular Muscles: Present: EOMI Conjunctiva: Present: Normal Ears: Present: NORMAL TM, Normal Canal. No: Erythema Mouth: Present: Moist Mucous Membranes Pharnyx: Present: ERYTHEMA, EXUDATE, TONSILS ENLARGED. No: Peritonsilar Swelling, Uvular Deviation, Muffled/Hoarse Voice, Strider, Soft Palate/Uvular Edema Nose (External): Present: Atraumatic. No: Abrasion, Contusion, Laceration Nose (Internal): Present: Normal Inspection, No Active Bleeding. No: Rhinorrhea , Septal Hematoma, Epistaxis Neck: Present: Normal Range of Motion, Trachea Midline. No: Meningeal Signs, MIDLINE TENDERNESS, Paraspinal Tenderness Respiratory/Chest: Present: Clear to Auscultation, Good Air Exchange. No: Respiratory Distress, Accessory Muscle Use Cardiovascular: Present: Regular Rate and Rhythm, Normal S1, S2. No: Murmurs Abdomen: Present: Normal Bowel Sounds. No: Tenderness, Distention, Peritoneal Signs Back: Present: Normal Inspection Upper Extremity: Present: Normal Inspection. No: Cyanosis, Edema Lower Extremity: Present: Normal Inspection. No: Edema Neurological: Present: GCS=15, CN II-XII Intact, Speech Normal Skin: Present: Warm, Dry, Normal Color. No: Rashes Psychiatric: Present: Alert, Oriented x 3, Normal Insight, Normal Concentration Medical Decision Making ED Course and Treatment: 01/14/18 16:12 -labs/rapid strept -IV toradol/decadron/cleocin -observe and reassess 01/14/18 17:00 -Urine hcg is negative -Labs are non-significant except wbc 11.9 -Rapid strept is negative -Pt. feels much better, eating and drinking well, tolerating po. -Discharge home with augmentin, tylenol, salt water gargling, soft food diet, stay hydrated, follow up with your own pmd and ENT within 2 days, return to the ER for any new or worsening signs or symptoms. - Lab Interpretations Lab Results: 01/14/18 15:45 01/14/18 15:45 Lab Results 01/14/18 15:45: Grp A Beta Strep Ag Negative 01/14/18 15:45: WBC 11.9 H D, RBC 4.33, Hgb 12.1, Hct 37.9, MCV 87.5, MCH 27.9, MCHC 31.9, RDW 12.9, Plt Count 392, MPV 9.5, Gran % 62.8, Lymph % (Auto) 29.4, Lane % (Auto) 5.7, Eos % (Auto) 1.7, Baso % (Auto) 0.4, Gran # 7.50 H, Lymph # ( Auto) 3.5 H, Lane # (Auto) 0.7 H, Eos # (Auto) 0.2, Baso # (Auto) 0.05 01/14/18 15:45: Sodium 143, Potassium 4.1, Chloride 104, Carbon Dioxide 31, Anion Gap 12, BUN 9, Creatinine 0.7, Est GFR ( Amer) > 60, Est GFR (Non- Af Amer) > 60, Random Glucose 98, Calcium 9.8, Total Bilirubin 0.3, AST 31, ALT 40, Alkaline Phosphatase 91, Total Protein 7.7, Albumin 3.9, Globulin 3.7, Albumin/Globulin Ratio 1.1 - Medication Orders Current Medication Orders: Discontinued Medications Dexamethasone (Decadron Inj) 4 mg IVP STAT STA Stop: 01/14/18 15:43 Last Admin: 01/14/18 15:58 Dose: 4 mg IVP Administration Document 01/14/18 15:58 GMD (Rec: 01/14/18 15:58 GMD [id number]) Charges for Administration # of IVP Administrations 1 Clindamycin Phosphate 900 mg/ (Sodium Chloride) 106 mls @ 106 mls/hr IVPB STAT STA PRN Reason: Protocol Stop: 01/14/18 16:41 Last Admin: 01/14/18 16:32 Dose: 106 mls/hr eMAR Start Stop Document 01/14/18 16:32 GMD (Rec: 01/14/18 16:32 GMD [id number]) Intravenous Solution Start Date 01/14/18 Start Time 16:32 End Date 01/14/18 End time 17:32 Total Infusion Time 60 Sodium Chloride (Sodium Chloride 0.9%) 500 mls @ 999 mls/hr IV .Q31M STA Stop: 01/14/18 16:12 Last Admin: 01/14/18 15:58 Dose: 999 mls/hr eMAR Start Stop Document 01/14/18 15:58 GMD (Rec: 01/14/18 15:58 GMD [id number]) Intravenous Solution Start Date 01/14/18 Start Time 15:58 End Date 01/14/18 End time 16:28 Total Infusion Time 30 Ketorolac Tromethamine (Toradol) 30 mg IVP STAT STA Stop: 01/14/18 15:43 Last Admin: 01/14/18 15:58 Dose: 30 mg MAR Pain Assessment Document 01/14/18 15:58 GMD (Rec: 01/14/18 15:58 GMD [id number]) Pain Reassessment Is this a pain reassessment? No Presence of Pain Presence of Pain Yes IVP Administration Document 01/14/18 15:58 GMD (Rec: 01/14/18 15:58 GMD [id number]) Charges for Administration # of IVP Administrations 1 - PA / MAINTENANCE ELECTRICIAN / Resident Statement MD/DO has reviewed & agrees with the documentation as recorded. Disposition/Present on Arrival - Present on Arrival Any Indicators Present on Arrival: No History of DVT/PE: No History of Uncontrolled Diabetes: No Urinary Catheter: No History of Decub. Ulcer: No History Surgical Site Infection Following: None - Disposition Have Diagnosis and Disposition been Completed?: Yes Diagnosis: Tonsillitis with exudate Disposition: HOME/ ROUTINE Disposition Time: 16:13 Patient Plan: Discharge Patient Problems: Current Active Problems Problem Status Onset Tonsillitis with exudate Acute Condition: IMPROVED Additional Instructions: -Discharge home with augmentin, tylenol, salt water gargling, soft food diet, stay hydrated, follow up with your own pmd and ENT within 2 days, return to the ER for any new or worsening signs or symptoms. Prescriptions: Acetaminophen [Tylenol 325mg tab] 2 tab PO QID PRN #30 tab PRN Reason: Other Amoxicillin/Clavulanate [Augmentin 875 MG-125 MG] 1 tab PO BID #20 tab Referrals: Tony Iraheta MD [Primary Care Provider] - Follow up with primary fAtab Smith DO [Staff Provider] - Follow up with primary Forms: WORK NOTE
[2018-01-14 15:23] VITALS: RESP 18
[2018-01-14] MEDS ORDERED: Dexamethasone 4 mg/1 ml IVP STA (15:42)
[2018-01-14] MEDS ORDERED: Sodium Chloride 0.9% 500 ML IV STA (15:42)
[2018-01-14 15:51] VITALS: O2SAT 98
[2018-01-14 16:04] LABS: BASO # 0.05 K/mm3 (0.0-2.0); BASO % 0.4 % (0.0-3.0); EOS # 0.2 (0.0-0.7); EOS % 1.7 % (1.5-5.0); GRAN # 7.5 (1.4-6.5); GRAN % 62.8 % (50.0-68.0); HEMOGLOBIN 12.1 g/dL (12.0-16.0); LYMPH # 3.5 (1.2-3.4); LYMPH % 29.4 % (22.0-35.0); MEAN CELL VOLUME 87.5 fl (80.0-105.0); MEAN CORPUSCULAR HEMOGLOBIN 27.9 pg (25.0-35.0); MEAN CORPUSCULAR HGB CONC 31.9 g/dl (31.0-37.0); MEAN PLATELET VOLUME 9.5 fl (7.0-11.0); MONO # 0.7 (0.1-0.6); MONO % 5.7 % (1.0-6.0); RBC 4.33 10^6/uL (3.5-6.1); RED CELL DISTRIBUTION WIDTH 12.9 % (11.5-14.5); WHITE BLOOD COUNT 11.9 10^3/ul (4.5-11.0)
[2018-01-14 16:13] LABS: ALB/GLOB RATIO 1.1 (1.1-1.8); ALBUMIN 3.9 g/dL (3.0-4.8); CALCIUM 9.8 mg/dL (8.4-10.5); GFR AFRICAN-AMERICAN > 60; GFR NON-AFRICAN AMERICAN > 60
[2018-01-14 16:16] LABS: BLOOD UREA NITROGEN 9 mg/dL (7-21)
[2018-01-14 16:43] LABS: ALT/SGPT 40 U/L (7-56); AST/SGOT 31 U/L (14-36)
[2018-01-14 18:35] VITALS: BP 121/68; PULSE 76; TEMP 98.4
== END 2018-01-14 18:36 | disposition home or self-care (01) ==
LOC: ED 15:11
DX: J03.90 Acute tonsillitis, unspecified (principal); F17.210 Nicotine dependence, cigarettes, uncomplicated
CPT/HCPCS: 80053; 85025; 87070; 87430; 96365; 96375; 99284; J1100; J1885; J7040

== ENCOUNTER 2018-10-16 11:30 | Emergency (ER) | payer MEDICAID ==
[2018-10-16 11:39] VITALS: RESP 18; BMI 30.9
--- NOTE | 2018-10-16 12:23 | ED PDOC ---
Arrival/HPI - General Chief Complaint: Headache Time Seen by Provider: 10/16/18 12:01 Historian: Patient - History of Present Illness Narrative History of Present Illness (Text): 10/16/18 12:11 53 year old female, whose past medical history includes migraines and hypertension, who presents to the emergency department complaining of a headache x 8 days. patisusannahn notes associated nausea. Patient states her PMD put her on sumatriptin for her migraines. Patient had an outpatient CT done recently, is unsure of the results. Patient denies any fever, chills, chest pain, shortness of breath, vomiting, diarrhea, back pain, neck pain, dizziness, or any other complaints. Time/Duration: > week (8 days) Symptom Onset: Gradual Symptom Course: Unchanged Activities at Onset: Light Context: Home Past Medical History - Provider Review Nursing Documentation Reviewed: Yes - Infectious Disease Hx of Infectious Diseases: None - Cardiac Hx Cardiac Disorders: Yes Hx Hypertension: Yes - Pulmonary Hx Respiratory Disorders: No - Neurological Hx Neurological Disorder: No - HEENT Hx HEENT Disorder: No - Renal Hx Renal Disorder: No - Endocrine/Metabolic Hx Endocrine Disorders: No - Hematological/Oncological Hx Blood Disorders: No - Integumentary Hx Dermatological Disorder: No - Musculoskeletal/Rheumatological Hx Musculoskeletal Disorders: No Hx Falls: No - Gastrointestinal Hx Gastrointestinal Disorders: No - Genitourinary/Gynecological Hx Genitourinary Disorders: No - Psychiatric Hx Psychophysiologic Disorder: No Hx Substance Use: No - Surgical History Hx Tubal Ligation: Yes Other/Comment: tubal ligation, liver scar tissue removal - Anesthesia Hx Anesthesia: Yes Hx Anesthesia Reactions: No Hx Malignant Hyperthermia: No Family/Social History - Physician Review Nursing Documentation Reviewed: Yes Family/Social History: Unknown Family HX Smoking Status: Light Smoker < 10 Cigarettes Daily Hx Alcohol Use: No Hx Substance Use: No Allergies/Home Meds Allergies/Adverse Reactions: Allergies ragweed pollen Allergy (Verified 01/14/18 15:23) CONGESTION Home Medications: Home Meds Medication Instructions Recorded Confirmed Aspirin [Adult Low Dose Aspirin EC] 81 mg PO DAILY 07/05/17 01/14/18 Bp Med 01/14/18 Review of Systems - Physician Review All systems were reviewed & negative as marked: Yes - Review of Systems Constitutional: Normal Eyes: Normal ENT: Normal Respiratory: Normal. absent: SOB, Cough Cardiovascular: Normal. absent: Chest Pain Gastrointestinal: Nausea. absent: Abdominal Pain, Vomiting Genitourinary Female: Normal. absent: Dysuria, Frequency Musculoskeletal: Normal. absent: Back Pain, Neck Pain Skin: Normal. absent: Rash Neurological: Headache Endocrine: Normal Hemo/Lymphatic: Normal Psychiatric: Normal Physical Exam Vital Signs Reviewed: Yes Vital Signs Temp Pulse Resp BP Pulse Ox 10/16/18 11:38 98.2 F 80 18 119/79 97 Temperature: Afebrile Blood Pressure: Normal Pulse: Regular Respiratory Rate: Normal Appearance: Positive for: Well-Appearing, Non-Toxic, Comfortable Pain Distress: None Mental Status: Positive for: Alert and Oriented X 3 - Systems Exam Head: Present: Atraumatic, Normocephalic Pupils: Present: PERRL Extroacular Muscles: Present: EOMI Conjunctiva: Present: Normal Mouth: Present: Moist Mucous Membranes Neck: Present: Normal Range of Motion Respiratory/Chest: Present: Clear to Auscultation, Good Air Exchange. No: Respiratory Distress, Accessory Muscle Use Cardiovascular: Present: Regular Rate and Rhythm, Normal S1, S2. No: Murmurs Abdomen: No: Tenderness, Distention, Peritoneal Signs Back: Present: Normal Inspection Upper Extremity: Present: Normal Inspection. No: Cyanosis, Edema Lower Extremity: Present: Normal Inspection. No: Edema Neurological: Present: GCS=15, CN II-XII Intact, Speech Normal Skin: Present: Warm, Dry, Normal Color. No: Rashes Psychiatric: Present: Alert, Oriented x 3, Normal Insight, Normal Concentration Medical Decision Making ED Course and Treatment: 10/16/18 12:24 Impression: 53 year old female presents to the Emergency department complaining of a headache x 8 days. Plan: -- Labs -- Benadryl -- Reglan -- Sodium Chloride -- HCG, Qualitative Urine -- UA -- Reassess and disposition Progress Notes: 10/16/18 13:[address] obseved labs neg. no thundercalp. states feels well for dc. refuses repeat ct. - Medication Orders Current Medication Orders: Diphenhydramine HCl (Benadryl) 25 mg IVP STAT STA Stop: 10/16/18 12:09 Sodium Chloride (Sodium Chloride 0.9%) 500 mls @ 999 mls/hr IV .Q31M STA Stop: 10/16/18 12:39 Metoclopramide HCl (Reglan) 10 mg IVP STAT STA Stop: 10/16/18 12:09 - Scribe Statement The provider has reviewed the documentation as recorded by the Nyibrosario Martin All medical record entries made by the Scribe were at my direction and personally dictated by me. I have reviewed the chart and agree that the record accurately reflects my personal performance of the history, physical exam, medical decision making, and the department course for this patient. I have also personally directed, reviewed, and agree with the discharge instructions and disposition. Disposition/Present on Arrival - Present on Arrival Any Indicators Present on Arrival: No History of DVT/PE: No History of Uncontrolled Diabetes: No Urinary Catheter: No History of Decub. Ulcer: No History Surgical Site Infection Following: None - Disposition Have Diagnosis and Disposition been Completed?: Yes Diagnosis: Headache Disposition: HOME/ ROUTINE Disposition Time: 13:27 Condition: STABLE Discharge Instructions (ExitCare): Headache, Adult (DC) Additional Instructions: return to er with worsening symptoms or concerns. [id number] up with specailist. you are declining a cat scan. you are able to return to any er with any concern. Prescriptions: Acetaminophen/Butalbital/Caf [Fioricet] 1 tab PO Q8 PRN #15 tab PRN Reason: Headache Referrals: Tony Iraheta MD [Primary Care Provider] - Follow up with primary Timi Packer MD [Staff Provider] - Follow up with primary Forms: [employer] (Samoan)
[2018-10-16] MEDS: DiphenhydrAMINE 50 mg/ml Inj IVP STA (12:42)
[2018-10-16] MEDS: Sodium Chloride 0.9% 500 ML IV STA (12:43)
[2018-10-16 13:14] LABS: PH,URINE 6.5 (4.7-8.0); URINE BILIRUBIN NEGATIVE (NEGATIVE); URINE BLOOD NEGATIVE (NEGATIVE); URINE GLUCOSE (UA) NEGATIVE (NEGATIVE); URINE LEUKOCYTE ESTERASE NEGATIVE Leu/uL (NEGATIVE); URINE PROTEIN NEGATIVE mg/dL (<30 mg/dL); URINE UROBILINOGEN 0.2 E.U./dL (<1 E.U./dL)
[2018-10-16 13:15] LABS: BASO # 0.03 K/mm3 (0.0-2.0); BASO % 0.4 % (0.0-3.0); EOS # 0.5 (0.0-0.7); GRAN # 3.69 (1.4-6.5); GRAN % 51.6 % (50.0-68.0); HEMOGLOBIN 12.6 g/dL (12.0-16.0); LYMPH # 2.6 (1.2-3.4); LYMPH % 36.1 % (22.0-35.0); MEAN CELL VOLUME 86.1 fl (80.0-105.0); MEAN CORPUSCULAR HEMOGLOBIN 27.3 pg (25.0-35.0); MEAN CORPUSCULAR HGB CONC 31.7 g/dl (31.0-37.0); MEAN PLATELET VOLUME 10.4 fl (7.0-11.0); MONO # 0.4 (0.1-0.6); MONO % 4.9 % (1.0-6.0); RBC 4.62 10^6/uL (3.5-6.1); RED CELL DISTRIBUTION WIDTH 12.9 % (11.5-14.5); WHITE BLOOD COUNT 7.2 10^3/uL (4.5-11.0)
[2018-10-16 13:16] LABS: HCG,QUALITATIVE URINE NEGATIVE (NEGATIVE)
[2018-10-16 13:18] LABS: URINE APPEARANCE CLEAR (CLEAR); URINE COLOR YELLOW (YELLOW)
[2018-10-16 13:21] LABS: INR 1.01; PARTIAL THROMBOPLASTIN TIME 28.5 Seconds (25.1-36.5); PROTHROMBIN TIME 11.6 SECONDS (9.4-12.5)
[2018-10-16 13:22] LABS: ALB/GLOB RATIO 1.2 (1.1-1.8); ALBUMIN 4.4 g/dL (3.0-4.8); ALT/SGPT 26 U/L (7-56); AST/SGOT 23 U/L (14-36); BLOOD UREA NITROGEN 7 mg/dL (7-21); CALCIUM 9.7 mg/dL (8.4-10.5); GFR NON-AFRICAN AMERICAN > 60
[2018-10-16 14:26] VITALS: BP 129/81; PULSE 78; TEMP 97.6; O2SAT 99
== END 2018-10-16 14:37 | disposition home or self-care (01) ==
LOC: ED 11:30
DX: R51 Headache (principal); I10 Essential (primary) hypertension; F17.210 Nicotine dependence, cigarettes, uncomplicated
CPT/HCPCS: 80053; 81003; 84703; 85025; 85610; 85730; 96374; 96375; 99285; J1200; J2765; J7040

== ENCOUNTER 2019-03-05 19:22 | Emergency (ER) | payer MEDICAID ==
[2019-03-05 20:04] VITALS: RESP 16; TEMP 98.5; O2SAT 100
[2019-03-05 20:40] VITALS: BMI 29.1
[2019-03-05 20:44] LABS: BASO # 0.03 K/mm3 (0.0-2.0); BASO % 0.3 % (0.0-3.0); EOS # 0.4 (0.0-0.7); EOS % 4.7 % (1.5-5.0); HEMOGLOBIN 12.7 g/dL (12.0-16.0); LYMPH # 3.6 (1.2-3.4); LYMPH % 38.9 % (22.0-35.0); MEAN CELL VOLUME 86.3 fl (80.0-105.0); MEAN CORPUSCULAR HEMOGLOBIN 26.7 pg (25.0-35.0); MEAN PLATELET VOLUME 10.3 fl (7.0-11.0); MONO # 0.6 (0.1-0.6); MONO % 6.3 % (1.0-6.0); RBC 4.75 10^6/uL (3.5-6.1); RED CELL DISTRIBUTION WIDTH 13.7 % (11.5-14.5); WHITE BLOOD COUNT 9.2 10^3/uL (4.5-11.0)
--- NOTE | 2019-03-05 20:51 | ED PDOC ---
Arrival/HPI - General Chief Complaint: Lower Extremity Problem/Injury Time Seen by Provider: 03/05/19 19:28 Historian: Patient - History of Present Illness Narrative History of Present Illness (Text): 53 y/o male with PMH of HTN presents to the ED c/o right knee pain x 2 days that worsened this morning. Pain is sharp, worse with movement, localized to medial right knee with associated redness and swelling. Took 800mg ibuprofen this morning at 8am with some relief. Pt is having difficulty bearing weight on the right knee. She has never had symptoms like this in the past. Pain started yesterday after wearing a new pair of high heels. Admits to smoking 4 cigarettes daily. No recent travel, immobilization, surgery, history of malignancy, or hormone use. Denies trauma/injury, open wounds, numbness, weakness, paresthesias, pain elsewhere, SOB, hemoptysis, chest pain, calf pain or swelling, or any other associated symptoms. Past Medical History - Provider Review Nursing Documentation Reviewed: Yes - Infectious Disease Hx of Infectious Diseases: None - Cardiac Hx Cardiac Disorders: Yes Hx Hypertension: Yes - Pulmonary Hx Respiratory Disorders: No - Neurological Hx Neurological Disorder: No - HEENT Hx HEENT Disorder: No - Renal Hx Renal Disorder: No - Endocrine/Metabolic Hx Endocrine Disorders: No - Hematological/Oncological Hx Blood Disorders: No - Integumentary Hx Dermatological Disorder: No - Musculoskeletal/Rheumatological Hx Musculoskeletal Disorders: No Hx Falls: No - Gastrointestinal Hx Gastrointestinal Disorders: No - Genitourinary/Gynecological Hx Genitourinary Disorders: No - Psychiatric Hx Psychophysiologic Disorder: No Hx Substance Use: No - Surgical History Hx Cardiac Catheterization: Yes (no stents placed) Hx Tubal Ligation: Yes Other/Comment: tubal ligation, liver scar tissue removal - Anesthesia Hx Anesthesia: Yes Hx Anesthesia Reactions: No Hx Malignant Hyperthermia: No Family/Social History - Physician Review Nursing Documentation Reviewed: Yes Family/Social History: No Known Family HX Smoking Status: Light Smoker < 10 Cigarettes Daily Hx Alcohol Use: No Hx Substance Use: No Allergies/Home Meds Allergies/Adverse Reactions: Allergies ragweed pollen Allergy (Verified 03/05/19 20:02) CONGESTION Home Medications: Home Meds Medication Instructions Recorded Confirmed Aspirin [Adult Low Dose Aspirin EC] 81 mg PO DAILY 07/05/17 10/16/18 Review of Systems - Physician Review All systems were reviewed & negative as marked: Yes - Review of Systems Constitutional: Normal. absent: Fevers Eyes: Normal. absent: Vision Changes ENT: Normal. absent: Sore Throat, Sinus Congestion Respiratory: Normal. absent: SOB, Cough Cardiovascular: Normal. absent: Chest Pain, Palpitations, Syncope Gastrointestinal: Normal. absent: Abdominal Pain, Nausea, Vomiting Genitourinary Female: Normal Musculoskeletal: Other (right medial knee pain). absent: Back Pain, Neck Pain Skin: Other (swelling right knee) Neurological: Normal. absent: Dizziness Physical Exam Vital Signs Reviewed: Yes Vital Signs Temp Pulse Resp BP Pulse Ox 03/05/19 20:44 67 16 138/79 100 03/05/19 19:42 98.5 F 69 16 158/89 H 100 Temperature: Afebrile Blood Pressure: Hypertensive Pulse: Regular Respiratory Rate: Normal Appearance: Positive for: Well-Appearing, Non-Toxic, Comfortable Pain Distress: None Mental Status: Positive for: Alert and Oriented X 3 - Systems Exam Head: Present: Atraumatic, Normocephalic Pupils: Present: PERRL Extroacular Muscles: Present: EOMI Conjunctiva: Present: Normal Mouth: Present: Moist Mucous Membranes Neck: Present: Normal Range of Motion Respiratory/Chest: Present: Clear to Auscultation, Good Air Exchange. No: Respiratory Distress, Accessory Muscle Use Cardiovascular: Present: Regular Rate and Rhythm, Normal S1, S2, Peripheal Pulses Present Upper Extremity: Present: Normal Inspection, Normal ROM Lower Extremity: Present: Normal Inspection, NORMAL PULSES, Tenderness (mild medial right knee over joint line), Swelling (mild medial right knee over joint line), Temperature Abnormalties (mild increased warmth medial right knee over joint line), Neurovascularly Intact, Capillary Refill < 2 s. No: Edema, CALF TENDERNESS, Normal ROM (decreased right knee), Erythema Neurological: Present: GCS=15, CN II-XII Intact, Speech Normal, Motor Func Grossly Intact, Normal Sensory Function, Gait Normal Skin: Present: Warm, Dry, Normal Color. No: Rashes Psychiatric: Present: Alert, Oriented x 3, Normal Insight, Normal Concentration, Normal Affect, Normal Mood Medical Decision Making ED Course and Treatment: Initial Plan: * Labs * Right leg duplex * Right knee XR * Tylenol Venous duplex prelim read negative for DVT Right knee XR negative for acute pathology as read by me Bloodwork shows mildly elevated ESR at 35, otherwise unremarkable. No leukocytosis, no left shift. Pt afebrile, no tachycardia. Patient evaluated and examined at bedside by ED attending Dtr. Hudson who agrees with plan of care and disposition. Advised close orthopedic and PMD followup. Pt verbalized understanding and states she will followup with PMD tomorrow and return for any increased swelling, redness, or pain. Diagnostic testing results and plan of care discussed with patient. Strict instructions given regarding prescription use, importance of followup, and signs/symptoms to return to ER including worsening pain, numbness, weakness, paresthesias, or any other new/worsening symptoms. Pt verbalized understanding of discussion. Patient is A&Ox3 with vital signs stable for discharge. - Lab Interpretations I have reviewed the lab results: Yes - RAD Interpretation Radiology Orders: 03/05/19 19:47 KNEE RIGHT 2 VIEWS (AP & LAT) [RAD] Stat DUPLEX LOWER EXTRM VEIN RIGHT [US] Stat - Medication Orders Current Medication Orders: Discontinued Medications Acetaminophen (Tylenol 325mg Tab) 650 mg PO STAT STA Stop: 03/05/19 19:49 Last Admin: 03/05/19 20:08 Dose: 650 mg MAR Pain/Vitals Document 03/05/19 20:08 KV (Rec: 03/05/19 20:08 KV [id number]) Pain Reassessment Is This A Pain ReAssessment? No Sleep Is patient sleeping during reassessment? No Presence of Pain Presence of Pain Yes Pain Scale Used Protocol: PSCALES Pain Scale Used Numeric Location Left, Right or Bilateral Right Pain Location Body Site Knee Description Constant Throbbing Intensity 7 Scale Used Numeric Disposition/Present on Arrival - Present on Arrival Any Indicators Present on Arrival: No History of DVT/PE: No History of Uncontrolled Diabetes: No Urinary Catheter: No History of Decub. Ulcer: No History Surgical Site Infection Following: None - Disposition Have Diagnosis and Disposition been Completed?: Yes Diagnosis: Knee pain, Tendonitis Disposition: HOME/ ROUTINE Disposition Time: 21:30 Patient Plan: Discharge Condition: IMPROVED Discharge Instructions (ExitCare): Tendonitis, Knee Pain (DC) Additional Instructions: Ibuprofen every 8 hours with food as needed for pain Ice every hour 15 minutes at a time, no direct skin contact Rest, no strenuous activity Keep knee elevated and iced. Followup with orthopedics within 2 days Followup with primary within 2 days Return to ER with any new/worsening symptoms Prescriptions: Ibuprofen [Motrin Tab] 600 mg PO Q8 PRN #30 tab PRN Reason: Pain, Moderate (4-7) Referrals: Fili Grimes MD [Staff Provider] - Follow up with primary Forms: [employer] (Turkmen), WORK NOTE
[2019-03-05 20:52] LABS: INR 0.91; PARTIAL THROMBOPLASTIN TIME 32.5 Seconds (26.9-38.3); PROTHROMBIN TIME 10.1 SECONDS (9.4-12.5)
[2019-03-05 22:05] LABS: ALB/GLOB RATIO 1.2 (1.1-1.8); ALBUMIN 3.7 g/dL (3.0-4.8); ALT/SGPT 22 U/L (7-56); AST/SGOT 26 U/L (14-36); BLOOD UREA NITROGEN 11 mg/dL (7-21); CALCIUM 8.9 mg/dL (8.4-10.5); GFR NON-AFRICAN AMERICAN > 60; URIC ACID 4.5 mg/dL (2.5-6.2)
[2019-03-05 22:21] VITALS: BP 146/90; PULSE 73
--- NOTE | 2019-03-06 09:16 | US ---
PROCEDURE: Right lower extremity venous US HISTORY: Leg pain and swelling. Evaluate for DVT. PHYSICIAN(S): Tha De Leon M.D. TECHNIQUE: Duplex sonography and color-flow Doppler with graded compression were used to evaluate the deep venous system of the right lower extremity. FINDINGS: The visualized deep venous system of the right lower extremity is sonographically normal and compressible. Normal waveforms and augmentation are seen. There is no sonographic evidence for deep venous thrombosis in the visualized segments of the right lower extremity. IMPRESSION: 1. No sonographic evidence for deep venous thrombosis in the visualized segments of the right lower extremity.
--- NOTE | 2019-03-06 11:26 | RAD ---
Date of service: 03/05/2019 PROCEDURE: Right Knee Radiographs. HISTORY: medial right knee pain COMPARISON: None. TECHNIQUE: 2 views obtained. FINDINGS: BONES: Bone alignment and mineralization are normal. There is no acute displaced fracture or bone destruction. JOINTS: There is mild tricompartmental degenerative osteoarthrosis with reduced joint spaces, marginal osteophytes and tibial spiking, worse in the medial compartment. JOINT EFFUSION: None. OTHER FINDINGS: None. IMPRESSION: No acute displaced fracture or dislocation. Mild tricompartmental degenerative osteoarthrosis, worse in the medial compartment.
== END 2019-03-05 22:21 | disposition home or self-care (01) ==
LOC: ED 19:22
DX: M25.561 Pain in right knee (principal); M77.9 Enthesopathy, unspecified; I10 Essential (primary) hypertension; F17.210 Nicotine dependence, cigarettes, uncomplicated
CPT/HCPCS: 73560; 80053; 84550; 85025; 85610; 85651; 85730; 93971; 96374; 99284; J1885